=== PATIENT | female | born 1940 | race Caucasian/White ===

== ENCOUNTER 2016-09-07 07:10 | Day surgery (SDC) | payer BC ==
[2016-09-06 11:20] LABS: HEMATOCRIT 38.6 % (36.0-48.0); HEMOGLOBIN 12.6 g/dL (12.0-16.0)
--- NOTE | ~2016-09-07 | OP ---
Record Of Operation [facility] [address] [place]. [address] NAME: RAMIRO ORTEGA : 42 [place] : [place] [facility] [place] [id number] AGE: 76 ADM/REG DATE : 09/07/16 MR#: [id number] REPORT SERV DATE: 09/07/16 DICTATED BY: SONY BARRY III DATE: 09/07/16 REPORT STATUS : Draft TRANSCRIBED BY: MODL DATE: 09/07/16 DATE OF PROCEDURE: 09/07/2016 PREOPERATIVE DIAGNOSIS: History of bladder cancer. POSTOPERATIVE DIAGNOSIS: Recurrent tumor. PROCEDURE: Transurethral resection of bladder tumors, greater than 5 cm. SURGEON: Sony Barry M.D. ANESTHESIA: General. SPECIMENS: None. BLOOD LOSS: 10 mL. INDICATION: Ms Ortega is a 76-year-old white female with a history of low-grade noninvasive papillary urothelial carcinoma. She had almost a papillomatosis appearance with multiple some small tumors throughout her bladder. These were very lightly adherent to the urothelium and were easily swept off the urothelium. She did receive mitomycin followed by a course of BCG. Consent was obtained for a cystoscopy with bladder biopsies. DESCRIPTION OF PROCEDURE: After informed consent was obtained, the patient was identified. She was taken to the OR and put to sleep. She was positioned in the low lithotomy position and prepped and draped in the usual fashion. The 22-Armenian cystoscope was inserted into the bladder and immediately papillary tumors were encountered there on the floor the bladder, left and right jeronimo, as well as the dome that were areas not involved; however, the resectoscope was made ready and inserted into the bladder. The loop was used to sweep off most of the smaller tumors and occasionally, the cautery was required on the some of the larger tumors and this took quite a while to do this. After all obvious areas of involvement were treated, the Ellik was used to evacuate the tumor pieces. This was passed off as specimen. The rollerball was then used to cauterize any bleeding points. The bladder was left full. The scope was removed. A 16-Armenian San catheter was then inserted and the balloon inflated to 10 mL. This was left in place for mitomycin instillation in the phase-two recovery. PH/MODL Sony Barry III, M.D. / [id number] Record Of [address] [place]. [address] NAME: RAMIRO ORTEGA : 42 [place] [facility] [place] [id number] AGE: 76 ADM/REG DATE : 09/07/16 MR#: [id number] REPORT SERV DATE: 09/07/16 DICTATED BY: SONY BARRY III DATE: 09/07/16 REPORT STATUS : Draft TRANSCRIBED BY: SUEL DATE: 09/07/16 CC: Anca Bradford III, M.D.
[~2016-09-07 07:10] MED LIST: ACET500CAP PO; ALLEGRA180 PO; ALLERGY INJ IM; AMBIEN CR12.5 MG PO; BL CHROMIUM200 MCG PO; BONIVA3I IV; CALTRA600D PO; CALTRAT600 PO; CENTRUM PO; CYANO1000T PO; DITRO5 PO; DITROPAN XL10 MG PO; FIBERCON PO; FISH-EPA1000 MG PO; LIDODERM T; LORT7 PO; LORTAB10 PO; MULTIPLE VIT PO; NORCO1 TAB PO; OSTEO BI-FLEX1 EACH PO; PCET PO; PRILO PO; PROAIR HFA INH; PROBIOTIC CAPSULE PO; PROTONIX PO; RESTASIS OPH; SINGULAIR1 PO; SUPER B COMP PO; SURBEX/C1 TAB PO; VIT B 12 SL; VITAMIN D1000 UNI1 PO; VITAMIN D31000 UNIT PO; VITC500 PO; VITE PO; ZYRTEC ALLGY10 MG PO; ZYRTEC-D ALG PO
[2016-10-22] MEDS ORDERED: VESICARE10 MG PO (11:15)
[2016-10-22] MEDS ORDERED: SUPER B COMP PO (11:31)
[2017-02-07] MEDS ORDERED: NORCO1 TAB PO (16:15)
[2017-02-07] MEDS ORDERED: PROAIR HFA INH (16:16)
[2017-02-07] MEDS ORDERED: MIRALAX POWDER1 PKT PO (16:19)
[2017-02-07] MEDS ORDERED: TOVIAZ8 MG PO (16:20)
[2017-02-07] MEDS ORDERED: DITROPAN XL10 MG PO (16:20)
== END 2016-09-07 15:48 | disposition home or self-care (01) ==
LOC: SDC 07:10
PROVIDERS: Urology
PROC: 0TBB8ZZ Excision of Bladder, Via Natural or Artificial Opening Endoscopic (ICD-10-PCS; principal; 2016-09-07 08:30)
DX: C67.8 Malignant neoplasm of overlapping sites of bladder (principal); Z85.51 Personal history of malignant neoplasm of bladder; J45.909 Unspecified asthma, uncomplicated; M41.9 Scoliosis, unspecified; Z85.3 Personal history of malignant neoplasm of breast; Z85.820 Personal history of malignant melanoma of skin; Z90.12 Acquired absence of left breast and nipple; Z77.22 Contact with and (suspected) exposure to environmental tobacco smoke (acute) (chronic); Z88.2 Allergy status to sulfonamides; Z88.6 Allergy status to analgesic agent; Z79.899 Other long term (current) drug therapy; Z90.89 Acquired absence of other organs; Z98.41 Cataract extraction status, right eye; Z98.42 Cataract extraction status, left eye; Z96.1 Presence of intraocular lens; Z86.718 Personal history of other venous thrombosis and embolism; Z98.1 Arthrodesis status; Z90.49 Acquired absence of other specified parts of digestive tract; Z90.710 Acquired absence of both cervix and uterus; Z98.890 Other specified postprocedural states; Z87.442 Personal history of urinary calculi
CPT/HCPCS: 85014; 85018; 87077; 87086; 87186; 88307; 93005; A9270-GY; J2405; J3010; J9280; Q9967

== ENCOUNTER 2016-10-26 06:30 | Day surgery (SDC) | payer BC ==
[2016-10-25 09:38] LABS: HEMATOCRIT 36.1 % (36.0-48.0); HEMOGLOBIN 11.9 g/dL (12.0-16.0)
--- NOTE | ~2016-10-26 | OP ---
Record Of Operation [facility] [address] [place]. [address] NAME: RAMIRO ORTEGA : 42 STATUS : [place] [facility] [place] PAT#: [id number] AGE: 76 ADM/REG DATE : 10/26/16 MR#: [id number] REPORT SERV DATE: 10/26/16 DICTATED BY: SONY BARRY III DATE: 10/26/16 REPORT STATUS : Draft TRANSCRIBED BY: MODL DATE: 10/26/16 DATE OF PROCEDURE: 10/26/2016 PREOPERATIVE DIAGNOSIS: History of urothelial carcinoma. POSTOPERATIVE DIAGNOSIS: Two small papillary tumors. PROCEDURE: Cystoscopy, left retrograde pyelogram, and TURBT, less than 2 cm. INDICATION: Ms. Ortega is 76-year-old white female with a history of multiple low-grade papillary tumors of the bladder. She has undergone multiple resections as well as mitomycin and BCG. She returns for a cystoscopy, bilateral retrograde pyelograms, and possible TURBT. PROCEDURE IN DETAIL: After a consent was obtained and the patient was identified, she was taken to the OR and put to sleep. She was positioned in the low lithotomy position and prepped and draped in the usual fashion. The 22-Latvian cystoscope was inserted and the bladder was inspected, there were multiple scars, but I only saw 2 small papillary tumors. A cone-tipped ureteral catheter was used to obtain a left retrograde pyelogram, is medially displaced proximally, presumably secondary to her lumbar spine surgery. The right ureteral orifice was rather patulous, I was unable to get a good seal to do a retrograde. It was decided that if we need to I will get an IVP in the future but did not want to instrument the right ureter any further. The cystoscope was exchanged for the 26-Latvian resectoscope, the 2 small papillary tumors were essentially swept off the urothelium, and the base cauterized. I did remove some calcified areas on to the scars in the bladder. Hemostasis was achieved with cautery, the bladder was left full, and the scope removed. A 16-Latvian San catheter was inserted, the balloon inflated to 10 mL for mitomycin instillation in phase 2. The patient was awakened and taken to recovery in stable condition. PH/MODL Sony Barry III, M.D. / [id number] CC: Anca Bradford III, M.D.
[~2016-10-26 06:30] MED LIST changes: +VESICARE10 MG PO
[2017-02-07] MEDS ORDERED: NORCO1 TAB PO (16:15)
[2017-02-07] MEDS ORDERED: PROAIR HFA INH (16:16)
[2017-02-07] MEDS ORDERED: MIRALAX POWDER1 PKT PO (16:19)
[2017-02-07] MEDS ORDERED: TOVIAZ8 MG PO (16:20)
[2017-02-07] MEDS ORDERED: DITROPAN XL10 MG PO (16:20)
== END 2016-10-26 17:08 | disposition home or self-care (01) ==
LOC: SDC 06:30
PROVIDERS: Urology
PROC: 0TBB8ZX Excision of Bladder, Via Natural or Artificial Opening Endoscopic, Diagnostic (ICD-10-PCS; principal; 2016-10-26 07:45)
DX: C67.9 Malignant neoplasm of bladder, unspecified (principal); J45.909 Unspecified asthma, uncomplicated; Z80.3 Family history of malignant neoplasm of breast; Z98.890 Other specified postprocedural states; Z86.718 Personal history of other venous thrombosis and embolism; Z88.6 Allergy status to analgesic agent; Z88.2 Allergy status to sulfonamides; Z79.899 Other long term (current) drug therapy; Z79.52 Long term (current) use of systemic steroids
CPT/HCPCS: 74420; 85014; 85018; 88307; 93005; A9270-GY; J2405; J2710; J3010; J9280; Q9967